=== PATIENT | male | born 1975 | race Two or more races ===

== ENCOUNTER 2022-10-27 06:28 | Emergency (ER) | payer OTHER, SELFPAY ==
[2022-10-27 06:42] VITALS: BP 133/94; PULSE 78; RESP 16; TEMP 36.2; O2SAT 98; BMI 30.7
[2022-10-27 09:01] VITALS: BP 141/96; PULSE 65; RESP 18; O2SAT 98
--- NOTE | 2022-10-27 09:25 | PC.NURSE ---
pt alert and oriented, skin appropriate for ethnicity, respirations even and unlabored, right eye lid red and swollen that started on Monday sometimes painful but not currently no visual disturbances but pt also reports that the last 15 days he has been noticing red blood in the toilet bowel when he has a bowel movement but intermitted, some rectal pain when he uses the toilet and pt is reporting that he drinks on the weekends.
[2022-10-27 09:44] LABS: MANUAL DIFF FLAG NO
--- NOTE | 2022-10-27 09:44 | ED.GENADULT ---
[facility] - General Adult General Chief complaint: Eye Problems Stated complaint: Eye pain/swollen Time Seen by Provider: 10/27/22 09:00 Source: patient and RN notes reviewed Mode of arrival: ambulatory Limitations: no limitations History of Present Illness HPI narrative: This is a 47-year-old male presenting to the emergency department for evaluation of right upper eyelid swelling and rectal bleeding. The patient reports that for the last 5 days he has noticed right upper eyelid pain, swelling. Patient denies any recent trauma or injury to his right eye. His states that the swelling has just increased in size. Denies any changes in his vision. Denies any drainage from his eye. Patient also reports that he has had some rectal bleeding with bowel movements. Patient denies being ever seen by GI, denies history of any routine colonoscopies. Patient reports that when he wipes he notices bright red blood. Patient otherwise denies any fevers, chills, chest pain, shortness breath, abdominal pain, nausea, vomiting or diarrhea. Denies any urinary symptoms. Denies taking any medications at home to treat his current symptoms. No other complaints or concerns at this time. MD complaint: Eyelid swelling, rectal bleeding Relieving factors: none Exacerbating factors: none Associated symptoms: denies other symptoms Treatments prior to arrival: none Related Data Previous Rx's Medication Instructions Recorded cefuroxime axetil 500 mg tablet 500 mg PO BID 7 days #14 tabs 10/27/22 erythromycin 5 mg/gram (0.5 %) eye 1 appl ophthalmic-Right DAILY 7 10/27/22 ointment days #3.5 grams Allergies Allergy/AdvReac Type Severity Reaction Status Date / Time No Known Allergies Allergy Verified 10/27/22 06:44 Review of Systems Review of Systems: Yes all other systems are reviewed and are negative Constitutional: Constitutional: Reports as per [facility] Social History Social History Alcohol intake: current Alcohol intake frequency: a few times a week Smoked in Last 30 Days: No Use of substances other than those prescribed or required for medical reasons: No Advance Directives: No Physical Exam ED Vital Signs: Vital Signs - 24 hr 10/27/22 06:42 10/27/22 09:01 10/27/22 11:45 Temperature 97.1 F Pulse Rate 78 65 62 Respiratory Rate 16 18 18 Blood Pressure 133/94 H 141/96 H 144/99 H Pulse Oximetry 98 98 96 Oxygen Delivery Method Room Air Room Air Room Air BMI result Body Mass Index 30.7 Const General: cooperative, comfortable and no acute distress Orientation/consciousness: patient oriented x3 Limitations: no limitations HENMT Head: Yes normal to inspection, Yes normocephalic and Yes atraumatic Ears: hearing grossly normal bilaterally General nose exam: Normal external nose present Face and sinus: Yes normal facial exam Mouth: Normal oral and palatal mucosa present, oropharynx normal and moist mucous membranes Throat: Yes posterior oropharynx normal Eyes Other: Right conjunctiva is not injected. Patient has mild edema and erythema noted to the right upper eyelid. Fever did eyelid without any pustules noted. No pain with extraocular movements. Pupils are equal and reactive. General: appearance normal, both eyes and all related structures Eyelids: Yes eyelids normal Conjunctivae: conjunctivae normal Sclerae: sclerae normal Pupils: Equal, round and reactive pupils present EOM: EOMs intact bilaterally Neck Neck: Yes normal visual inspection, Yes full ROM and Yes no lymphadenopathy Lymphatic: no lymphadenopathy noted Chest Chest palpation & inspection: normal inspection of the chest Resp Effort & Inspection: normal respiratory effort and able to speak in complete sentences Auscultation: clear to auscultation bilaterally, no crackles, no rales, no rhonchi and no wheezes Cardio Rate: regular rate Rhythm: regular rhythm Heart sounds: S1 normal heart sound present and S2 normal heart sound present GI Other: Rectal examination performed with RNVy present the entire time. Patient has good rectal tone, scant light brown stool noted on digital exam. No external hemorrhoids or internal hemorrhoids appreciated. Inspection: Yes normal to inspection Skin General skin exam: no rashes or lesions noted Trauma: no lacerations or abrasions Wounds: no wounds Neuro General: patient oriented x3 and moves all extremities Cranial nerves: Yes Equal, round and reactive pupils present Extrem General: Yes normal to inspection Right upper extremity: normal to inspection Left upper extremity: normal to inspection Right lower extremity: normal to inspection Left lower extremity: normal to inspection Medical Decision Making Medical Decision Making MDM Narrative: This is a 47-year-old male presenting to the emergency department for evaluation of right upper eyelid swelling and rectal bleeding. On arrival, vital signs within normal limits. Right eye without any signs of orbital cellulitis. Conjunctiva is not injected and patient does not have any pain with extraocular movements. There is no punctate lesion to suggest corneal however blepharitis versus periorbital cellulitis is considered. Given edema, will treat with topical and oral antibiotics. Patient also reporting rectal bleeding with bowel movements only. States often this only occurs with wiping. Labs were obtained, CBC within normal limits. Chemistry revealing a total bili of 1.5, however nondiagnostic, given GI referral for routine colonoscopy and follow-up. Patient also given list of primary care physicians to follow-up with as well. Visual acuity within normal limits. Discussed return precautions if any new or worsening symptoms occur. Also advised to apply warm compresses to the area. Patient understands and agrees with plan. Patient stable for discharge. Differential Diagnosis Differential Diagnoses: The differential diagnosis associated with the presentation includes Periorbital cellulitis, orbital cellulitis-unlikely, conjunctivitis, hordeolum, blepharitis, hemorrhoids, lower GI bleed Lab Data MDM Lab Attestation statement: I reviewed the patient's lab results. See above 10/27/22 09:38 10/27/22 09:38 Labs: Lab Results 10/27/22 10/27/22 10/27/22 Range/Units 09:38 09:38 11:49 WBC 5.1 (4.8-10.8) X10*3/uL RBC 5.51 (4.60-5.80) X10*6/uL Hgb 17.8 (14.0-18.0) g/dl Hct 50.7 (42.0-52.0) % MCV 92.0 (80.0-98.0) fL MCH 32.3 (27.0-33.0) pg MCHC 35.1 (31.0-36.0) g/dl RDW 11.9 (11.0-16.0) % Plt Count 250 (160-400) X10*3/uL MPV 9.3 L (9.4-12.4) fL Immature Gran % (Auto) 0.2 (0.0-0.4) % Neut % (Auto) 60.2 (45-73) % Lymph % (Auto) 27.1 (20-40) % Gaston % (Auto) 9.3 (2-11) % Eos % (Auto) 2.2 (0-4) % Baso % (Auto) 1.0 (0-2) % Lymph # (Auto) 1.4 (1.2-4.9) X10*3/uL Gaston # (Auto) 0.5 (0.1-1.2) X10*3/uL Eos # (Auto) 0.1 (0.0-0.4) X10*3/uL Baso # (Auto) 0.1 (0.0-0.2) X10*3/uL Abs Immat Gran (auto) 0.01 (0.00-0.03) X10*3/uL Absolute Neuts (auto) 3.1 (2.0-8.3) x10*3/uL Absolute Nucleated RBC 0.000 (0.0-0.012) X10*3/uL Nucleated RBC % (auto) 0.0 (0.0-0.2) /100WBC Sodium 139 (135-145) mmol/L Potassium 4.4 (3.3-5.1) mmol/L Chloride 104 (96-108) mmol/L Carbon Dioxide 29 (22-29) mmol/L Anion Gap 10 L (12-20) BUN 11 (9-16) mg/dL Creatinine 1.10 (0.5-1.4) mg/dL Estim Creat Clear Calc 84.5 Estimated GFR > 60 Random Glucose 137 H (60-115) mg/dL Calcium 9.6 (8.4-10.2) mg/dL Total Bilirubin 1.5 H (0.0-1.0) mg/dL Direct Bilirubin 0.3 (0.0-0.5) mg/dL AST 37 (5-37) U/L ALT 71 H (0-40) U/L Alkaline Phosphatase 75 (39-117) U/L Total Protein 7.4 (6.5-8.0) g/dL Albumin 4.3 (3.5-5.0) g/dL Stool Occult Blood NEGATIVE (NEGATIVE) Radiology Impression Discussion of test interpretation with radiology: I have reviewed the radiologist's reading. External Record Review External record reviewed: Inpatient record, Office record, Outpatient record, Prior outpatient labs, Prior outpatient radiology, Primary care record and Outside ED record Discharge Plan Discharge Clinical Impression: Blepharitis, Rectal bleeding Patient Disposition: Home, Self-Care Instructions: Rectal Bleeding (ED), Blepharitis (ED) Additional Instructions: Your upper eyelid is infected. Please use and take antibiotic as directed. Apply warm compresses to the eye 5-6 times per day. Your lab work was reassuring today, however given that you are having some blood with bowel movements, your stool testing today was negative for any blood. please follow-up with GI. Call today to make an appointment. If any new or worsening symptoms occur, including but not limited to fevers, chills, dizziness, chest pain, shortness of breath, worsening symptoms, please return for re-evaluation. It is critical that you have a primary care physician, we had given you referral today for primary care. Call to make appointment. Thomas p?rpado superior est? infectado. Utilice y tome antibi?ticos seg?n las indicaciones. Aplique compresas tibias en el elena de 5 a 6 veces al d?a. Thomas an?lisis de laboratorio fue tranquilizador qasim; sin embargo, dado que tiene algo de yolanda en las deposiciones, thomas an?lisis de heces de qasim fue negativo para yolanda. por favor siva un seguimiento con GI. Llame hoy para programar mariana leandra. Si se presenta alg?n s?ntoma nuevo o que empeora, incluidos, entre otros, fiebre, escalofr?os, mareos, dolor en el pecho, dificultad para respirar o empeoramiento de los s?ntomas, regrese para mariana nueva evaluaci?n. Es fundamental que tenga un m?dico de atenci?n primaria; hoy lo derivamos para atenci?n primaria. Llame para concertar mariana leandra. Prescriptions: New erythromycin 5 mg/gram (0.5 %) ointment 1 appl ophthalmic-Right DAILY 7 Days Qty: 3.5 0RF cefuroxime axetil 500 mg tablet 500 mg PO BID 7 Days Qty: 14 0RF Referrals: [facility] [place] [facility] [Provider Group] Interventions: ED Discharge Assessment Last Done: 10/27/22 12:40 Discharge Date/Time: 10/27/22 12:40
[2022-10-27 09:45] LABS: Basophils Absolute Auto 0.1 X10*3/uL (0.0-0.2); Eosinophils Absolute Auto 0.1 X10*3/uL (0.0-0.4); Eosinophils Percent Auto 2.2 % (0-4); Hematocrit 50.7 % (42.0-52.0); Hemoglobin 17.8 g/dl (14.0-18.0); Imm Gran Abs Auto 0.01 X10*3/uL (0.00-0.03); Imm Gran Pct Auto 0.2 % (0.0-0.4); Lymphocytes Absolute Auto 1.4 X10*3/uL (1.2-4.9); Lymphocytes Percent Auto 27.1 % (20-40); Mean Corpuscular HGB Conc 35.1 g/dl (31.0-36.0); Mean Corpuscular Hemoglobin 32.3 pg (27.0-33.0); Mean Platelet Volume 9.3 fL (9.4-12.4); Monocytes Absolute Auto 0.5 X10*3/uL (0.1-1.2); Monocytes Percent Auto 9.3 % (2-11); Neutrophils Absolute Auto 3.1 x10*3/uL (2.0-8.3); Neutrophils Percent Auto 60.2 % (45-73); Platelet Count 250 X10*3/uL (160-400); Red Blood Count 5.51 X10*6/uL (4.60-5.80); Red Cell Distribution Width 11.9 % (11.0-16.0); White Blood Count 5.1 X10*3/uL (4.8-10.8)
[2022-10-27 10:09] LABS: Alanine Aminotransferase 71 U/L (0-40); Albumin Level 4.3 g/dL (3.5-5.0); Alkaline Phosphatase 75 U/L (39-117); Anion Gap 10 (12-20); Aspartate Amino Transferase 37 U/L (5-37); Bilirubin Direct 0.3 mg/dL (0.0-0.5); Bilirubin Total 1.5 mg/dL (0.0-1.0); Blood Urea Nitrogen 11 mg/dL (9-16); Calcium 9.6 mg/dL (8.4-10.2); Carbon Dioxide 29 mmol/L (22-29); Chloride 104 mmol/L (96-108); Creatinine Clr Calc Pharmacy 84.5; Estimated Glomerular Filt Rate > 60; Glucose Random 137 mg/dL (60-115); Potassium 4.4 mmol/L (3.3-5.1); Sodium 139 mmol/L (135-145); Total Protein 7.4 g/dL (6.5-8.0)
[2022-10-27 11:45] VITALS: BP 144/99; PULSE 62; RESP 18; O2SAT 96
--- NOTE | 2022-10-27 11:50 | PC.NURSE ---
chaperoned emely almanzar during a rectal exam, pt tolerated the procedure well
[2022-10-27 11:56] LABS: OBS Int Ctl Valid YES; OBS1 NEGATIVE (NEGATIVE)
== END 2022-10-27 12:40 | disposition home or self-care (01) ==
PROVIDERS: Physician Assistant Medical; Emergency Provider Emergency Medicine
DX: H01.001 Unspecified blepharitis right upper eyelid (principal); K62.5 Hemorrhage of anus and rectum; H57.11 Ocular pain, right eye
CPT/HCPCS: 36415; 80048; 80076; 82272; 85025; 99283; 99284

== ENCOUNTER 2022-11-09 08:31 | Emergency (ER) | payer MEDICAID, SELFPAY ==
[2022-11-09 08:52] VITALS: BP 137/86; PULSE 84; RESP 18; TEMP 36.2; O2SAT 97; BMI 30.7
--- NOTE | 2022-11-09 10:59 | ED.GENADULT ---
HPI - General Adult General Chief complaint: General Medical Stated complaint: high BP Time Seen by Provider: 11/09/22 10:59 Source: patient and old records reviewed Mode of arrival: ambulatory Limitations: no limitations History of Present Illness HPI narrative: 47 yo male presents to the ER for evaluation of elevated BP at home. He states since last week he has been checking his BP more frequently and it has been as high as 150/100. He has had associated headaches. He is not on BP meds. He does not have a PCP. He denies chest pain or vision changes. The headaches come and go and are diffuse. MD complaint: headache, elevated BP at home Onset (ago): week(s) Location: head Radiation: non-radiation Severity: moderate Quality: other (throbbing) Pain Consistency: intermittent Relieving factors: none Associated symptoms: denies other symptoms Treatments prior to arrival: none Related Data Previous Rx's Medication Instructions Recorded cefuroxime axetil 500 mg tablet 500 mg PO BID 7 days #14 tabs 10/27/22 erythromycin 5 mg/gram (0.5 %) eye 1 appl ophthalmic-Right DAILY 7 10/27/22 ointment days #3.5 grams Allergies Allergy/AdvReac Type Severity Reaction Status Date / Time No Known Allergies Allergy Verified 10/27/22 06:44 Review of Systems Review of Systems: Yes all other systems are reviewed and are negative [facility] Social History Social History Alcohol intake: current Alcohol intake frequency: a few times a week Advance Directives: No Advance Directives Information Provided: No Physical Exam ED Vital Signs: Vital Signs - 24 hr 11/09/22 08:52 11/09/22 11:11 Temperature 97.1 F 97.6 F Pulse Rate 84 70 Respiratory Rate 18 16 Blood Pressure 137/86 137/96 H Pulse Oximetry 97 98 Oxygen Delivery Method Room Air Room Air BMI result Body Mass Index 30.7 Appearance: Alert. Oriented X3. No acute distress. Head: normocephalic, atraumatic. Eyes: Pupils equal, round and reactive to light. ENT: Pharynx normal. Neck: Normal inspection. . CVS: Normal heart rate and rhythm. Pulses normal. Respiratory: No respiratory distress. Skin: Skin warm and dry. Normal skin color. Normal skin turgor. No rashes. Extremities: No lower extremity edema. No joint swelling. Neuro/psych: Oriented X 3. Grossly, normal, nonfocal. Normal speech and cognition. Medical Decision Making Medical Decision Making MDM Narrative: 47 yo male presenting with headache and elevated BP at home x1 week. BP last visit in the 140/80s. Not on meds. BP today 130/80s x2. No current symptoms. Unlikely that blood pressure of 130 is causing headaches. Most likely other etiology. He has no chest pain or vision changes. At this time no acute intervention is required for his blood pressure. It is recommended that he decrease his salt and increase his aerobic activity. He has follow-up with primary care doctor. Patient upset that no medication is going to be started today so he left from the ER prior to receiving full discharge instructions, although we discussed lifestyle modifications and importance of outpatient follow-up. He expressed understanding. Differential Diagnosis Differential Diagnoses: The differential diagnosis associated with the presentation includes general headache, migraine, viral syndrome, less likely HTN urgency or emergency Tests considered The following testing was considered but not selected: considered labs and EKG Prescription Management I considered prescription management with: Other (antihypertensive) Critical Care Time Critical Care Time Critical Care Time: No Discharge Plan Discharge Clinical Impression: Stage 1 hypertension Patient Disposition: Home, Self-Care Instructions: DASH Eating Plan (ED), Hypertension (ED) Additional Instructions: Your blood pressure was mildly elevated today Recommend limiting the salt in your diet Increase your aerobic exercise Follow up with a primary care doctor for further evaluation and treatment No need to start blood pressure meds today If you develop new or worsening symptoms call 911 or come back to the ER for further evaluation. Thomas presi?n arterial estuvo ligeramente elevada hoy Recomienda limitar la nevin en thomas dieta. Incrementa tu ejercicio aer?bico Stefani un seguimiento con un m?dico de atenci?n primaria para mariana evaluaci?n y tratamiento adicionales. No es necesario comenzar a young medicamentos para la presi?n arterial hoy Si desarrolla s?ntomas nuevos o que empeoran, llame al 911 o regrese a la geovanna de emergencias para mariana evaluaci?n adicional. Prescriptions: No Action erythromycin 5 mg/gram (0.5 %) ointment 1 appl ophthalmic-Right DAILY 7 Days Qty: 3.5 0RF cefuroxime axetil 500 mg tablet 500 mg PO BID 7 Days Qty: 14 0RF Referrals: [facility] [place] Family Medicine [Provider Group] [facility] [place] Primary [facility] [Provider Group] [facility] [place] Primary [facility] [Provider Group] Interventions: ED Discharge Assessment Last Done: 11/09/22 11:32 Discharge Date/Time: 11/09/22 11:32
[2022-11-09 11:11] VITALS: BP 137/96; PULSE 70; RESP 16; TEMP 36.4; O2SAT 98
--- NOTE | 2022-11-09 11:13 | PC.NURSE ---
pt a&ox3. respirations even and unlabored. pt reports being see a week ago for high blood pressure but does not have a PCP to receive blood pressure medications. pt reports a 5/10 headache currently but denies chest pain, dizziness, blurriness in eyes, nausea and vomiting.
--- NOTE | 2022-11-09 11:31 | PC.NURSE ---
pt left without discharge instructions.
== END 2022-11-09 11:32 | disposition home or self-care (01) ==
PROVIDERS: Emergency Provider Emergency Medicine
DX: R51.9 Headache, unspecified (principal); I10 Essential (primary) hypertension
CPT/HCPCS: 99283; 99284